=== PATIENT | female | born 1950 | race Caucasian/White ===

== ENCOUNTER 2017-05-01 14:59 | Emergency (ER) | payer MEDICAID ==
[~2017-05-01] VITALS: Ht 157.5 cm; Wt 75.7 kg
[2017-05-01 14:59] VITALS: BP_SYST 143
[2017-05-01] MEDS ORDERED: ACETAMINOPHEN 500 MG TABLET PO ONE (16:15)
[2017-05-01] MEDS ORDERED: ALPRAZolam 0.25 MG TABLET PO ONE (16:15)
[2017-05-01] MEDS ORDERED: MORPHINE 2 MG/ML INJ. SYRINGE IVP ONE (16:15)
[2017-05-01 16:49] LABS: BILIRUBIN,URINE NEGATIVE (NEGATIVE); BLOOD, URINE NEGATIVE (NEGATIVE); CLARITY/URINE CLEAR (CLEAR); COLOR,URINE YELLOW (YELLOW); GLUCOSE,URINE NEGATIVE (NEGATIVE); KETONES,URINE NEGATIVE (NEGATIVE); LEUKOCYTE ESTERASE ,URINE 1+ (NEGATIVE); NITRITE, URINE NEGATIVE (NEGATIVE); PH,URINE 5.5 (5.0-8.0); PROTEIN URINE NEGATIVE (NEGATIVE); UROBILINOGEN,URINE 0.2 (0.2-1.0)
[2017-05-01 16:56] VITALS: BP_SYST 126
[2017-05-01 16:58] LABS: BACTERIA,URINE RARE /HPF (None Seen); RBC,URINE 0-3 /HPF (0-3)
== END 2017-05-01 16:56 | disposition home or self-care (01) ==
LOC: SED 14:59
DX: I10 Essential (primary) hypertension (principal); F41.9 Anxiety disorder, unspecified; H11.31 Conjunctival hemorrhage, right eye; Z98.890 Other specified postprocedural states
CPT/HCPCS: 81000-TC; 87086; 93005; 99285